=== PATIENT | female | born 1970 | race Caucasian/White ===

== ENCOUNTER 2023-04-06 10:05 | Inpatient (IN) | payer SELFPAY ==
[2023-04-06 12:01] LABS: BASO % 1.1 % (0-2.0); EOS % 2.8 % (0-4.5); HEMATOCRIT 39.4 % (32.4-45.2); HEMOGLOBIN 12.7 GM/dL (10.7-15.3); LYMPH % 21.7 % (8-40); MCH 24.5 pg (25.7-33.7); MCHC 32.2 g/dl (32.0-36.0); MEAN CELL VOLUME 76.2 fl (80-96); MEAN PLT VOLUME 9.2 fl (7.5-11.1); NEUT % 68.4 % (42.8-82.8); PLATELET COUNT 384 10^3/uL (134-434); RBC 5.17 M/mm3 (3.60-5.2); WHITE BLOOD COUNT 11.2 K/mm3 (4.0-10.0)
[2023-04-06 12:07] LABS: INR 1.14 (0.83-1.09); PROTHROMBIN TIME (PATIENT) 13.2 SEC (9.7-13.0)
[2023-04-06] MEDS ORDERED: ASPIRIN 81 MG CHEWABLE TABLETS PO ONE (12:07)
[2023-04-06 12:10] LABS: ACTIVATED PTT 28.6 SECONDS (25.2-36.5)
[2023-04-06] MEDS ORDERED: ASPIRIN 81 MG CHEWABLE TABLETS ONE (12:23)
[2023-04-06 12:36] LABS: PH,URINE 5.5 (5.0-8.0); URINE APPEARANCE CLEAR; URINE BILIRUBIN NEGATIVE (NEGATIVE); URINE COLOR YELLOW; URINE GLUCOSE (UA) 3+ (NEGATIVE); URINE KETONE NEGATIVE (NEGATIVE); URINE LEUK ESTERASE NEGATIVE (NEGATIVE); URINE NITRITE NEGATIVE (NEGATIVE); URINE PROTEIN NEGATIVE (NEGATIVE); URINE UROBILINOGEN 0.2 mg/dL (0.2-1.0)
[2023-04-06 12:55] LABS: CHLORIDE 97 mmol/L (98-107); POTASSIUM 4.6 mmol/L (3.5-5.1); SODIUM 131 mmol/L (136-145)
[2023-04-06 12:59] LABS: ALBUMIN 3.8 g/dl (3.4-5.0); ANION GAP 7 MMOL/L (8-16); CALCIUM 9.5 mg/dL (8.5-10.1); CO2 26 mmol/L (21-32)
[2023-04-06 13:01] LABS: BLOOD UREA NITROGEN 16.4 mg/dL (7-18)
[2023-04-06 13:03] LABS: CREATININE 0.8 mg/dL (0.55-1.3); SGOT/AST 16 U/L (15-37); SGPT/ALT 35 U/L (13-61)
[2023-04-06 13:04] LABS: CHOLESTEROL 200 mg/dL (50-200)
[2023-04-06 13:05] LABS: BILIRUBIN,TOTAL 0.5 mg/dL (0.2-1); LDL CHOLESTEROL (ONLY SJRH) 138 mg/dL (5-100); TOT PROT 7.8 g/dl (6.4-8.2)
[2023-04-06 13:07] LABS: ALK PHOS 133 U/L (45-117); HDL CHOLESTEROL 32 mg/dL (40-60)
[2023-04-06 13:09] LABS: GLUCOSE,RANDOM 479 mg/dL (74-106)
[2023-04-06] MEDS ORDERED: INSULIN REGULAR HUMAN 100 UNITS/ML *VIAL IVPUSH ONE (14:14)
[2023-04-06] MEDS ORDERED: LACTATED RINGERS SOLUTION 1,000 ML/1,000 ML INFUS.BAG IV SCH (14:30)
[2023-04-06] MEDS ORDERED: INSULIN (LEVEMIR) 100 UNITS/ML UNITS SQ ONE (14:30)
[2023-04-06] MEDS: ATORVASTATIN CA 80 MG TABLET (FP) PO SCH (21:18)
[2023-04-07] MEDS ORDERED: INSULIN REGULAR HUMAN 100 UNITS/ML *VIAL IVPUSH ONE (00:18)
[2023-04-07] MEDS ORDERED: INSULIN (NOVOLOG) ASPART 100 UNITS/ML 10ML VIAL SQ ONE (00:45)
[2023-04-07] MEDS: INSULIN SLIDING SCALE (NOVOLOG) 1 VIAL SQ SCH ×4 (06:45→21:21)
[2023-04-07 07:53] LABS: BASO % 0.8 % (0-2.0); EOS % 4.4 % (0-4.5); HEMATOCRIT 36.3 % (32.4-45.2); HEMOGLOBIN 11.8 GM/dL (10.7-15.3); LYMPH % 27.4 % (8-40); MCH 24.6 pg (25.7-33.7); MCHC 32.5 g/dl (32.0-36.0); MEAN CELL VOLUME 75.7 fl (80-96); MEAN PLT VOLUME 9.1 fl (7.5-11.1); MONO % 7.4 % (3.8-10.2); PLATELET COUNT 334 10^3/uL (134-434); RDW 14.7 % (11.6-15.6); WHITE BLOOD COUNT 8.3 K/mm3 (4.0-10.0)
[2023-04-07 08:12] LABS: POTASSIUM 4.3 mmol/L (3.5-5.1)
[2023-04-07 08:14] LABS: ALBUMIN 3.1 g/dl (3.4-5.0); BLOOD UREA NITROGEN 13.7 mg/dL (7-18); CALCIUM 8.6 mg/dL (8.5-10.1)
[2023-04-07 08:15] LABS: MAGNESIUM 1.9 mg/dL (1.8-2.4)
[2023-04-07 08:17] LABS: CREATININE 0.5 mg/dL (0.55-1.3); PHOSPHOROUS 3.7 mg/dL (2.5-4.9)
[2023-04-07 08:19] LABS: BILIRUBIN,TOTAL 0.4 mg/dL (0.2-1); TOT PROT 6.3 g/dl (6.4-8.2)
[2023-04-07] MEDS ORDERED: ASPIRIN COATED 81 MG TABLET.EC PO SCH ×2 (10:00)
[2023-04-07] MEDS: ENOXAPARIN NA (PORCINE) 40 MG/0.4 ML DISP.SYRIN SQ SCH (10:10)
[2023-04-07] MEDS: ASPIRIN COATED 81 MG TABLET.EC PO SCH (10:10)
[2023-04-07] MEDS ORDERED: ACETAMINOPHEN/CAFFEINE/BUTALBITAL 1 TAB PO ONE (14:24)
[2023-04-07] MEDS: OMEGA-3 ACID ETHYL ESTERS (FATTY-ACIDS) 1 GM CAPSULE (FP) PO SCH (21:10)
[2023-04-07] MEDS: ATORVASTATIN CA 80 MG TABLET (FP) PO SCH (21:11)
[2023-04-07] MEDS ORDERED: INSULIN (NOVOLOG) ASPART 100 UNITS/ML 10ML VIAL ONE (21:19)
[2023-04-07] MEDS ORDERED: INSULIN (LEVEMIR) 100 UNITS/ML UNITS SQ SCH (22:00)
[2023-04-08] MEDS ORDERED: INSULIN (NOVOLOG) ASPART 100 UNITS/ML 10ML VIAL ONE ×3 (06:18→16:00)
[2023-04-08] MEDS: INSULIN SLIDING SCALE (NOVOLOG) 1 VIAL SQ SCH ×4 (06:45→23:05)
[2023-04-08] MEDS: INSULIN (LEVEMIR) 100 UNITS/ML UNITS SQ SCH ×2 (10:20→23:04)
[2023-04-08] MEDS: ENOXAPARIN NA (PORCINE) 40 MG/0.4 ML DISP.SYRIN SQ SCH (10:21)
[2023-04-08] MEDS: ASPIRIN COATED 81 MG TABLET.EC PO SCH (10:21)
[2023-04-08] MEDS: OMEGA-3 ACID ETHYL ESTERS (FATTY-ACIDS) 1 GM CAPSULE (FP) PO SCH ×2 (10:21→22:27)
[2023-04-08 10:47] VITALS: RESP 18
[2023-04-08] MEDS: CYCLOBENZAPRINE HCL 5 MG TABLET PO SCH (12:36)
[2023-04-08] MEDS: METHYL SALICYLATE/MENTHOL OINT 30 GM TUBE TP SCH ×2 (13:20)
[2023-04-08 14:33] VITALS: BMI 35.7
[2023-04-08] MEDS: ATORVASTATIN CA 80 MG TABLET (FP) PO SCH (22:28)
[2023-04-09] MEDS: INSULIN (NOVOLOG) ASPART 100 UNITS/ML 10ML VIAL SQ SCH ×3 (06:35→16:32)
[2023-04-09] MEDS: INSULIN SLIDING SCALE (NOVOLOG) 1 VIAL SQ SCH ×3 (06:36→16:32)
[2023-04-09] MEDS: INSULIN (LEVEMIR) 100 UNITS/ML UNITS SQ SCH (06:38)
[2023-04-09 07:42] LABS: BASO % 0.8 % (0-2.0); EOS % 3.9 % (0-4.5); HEMATOCRIT 37.2 % (32.4-45.2); LYMPH % 21.5 % (8-40); MCH 24.6 pg (25.7-33.7); MCHC 32.3 g/dl (32.0-36.0); MEAN CELL VOLUME 76.2 fl (80-96); MONO % 6.1 % (3.8-10.2); NEUT % 67.7 % (42.8-82.8); PLATELET COUNT 325 10^3/uL (134-434); RBC 4.89 M/mm3 (3.60-5.2); WHITE BLOOD COUNT 9.8 K/mm3 (4.0-10.0)
[2023-04-09 07:57] LABS: POTASSIUM 4.5 mmol/L (3.5-5.1)
[2023-04-09 08:01] LABS: ALBUMIN 3.3 g/dl (3.4-5.0); CALCIUM 8.8 mg/dL (8.5-10.1)
[2023-04-09 08:02] LABS: BLOOD UREA NITROGEN 14.3 mg/dL (7-18)
[2023-04-09 08:05] LABS: CREATININE 0.6 mg/dL (0.55-1.3)
[2023-04-09 08:06] LABS: BILIRUBIN,TOTAL 0.4 mg/dL (0.2-1); TOT PROT 6.6 g/dl (6.4-8.2)
[2023-04-09] MEDS: ASPIRIN COATED 81 MG TABLET.EC PO SCH (10:14)
[2023-04-09] MEDS: ENOXAPARIN NA (PORCINE) 40 MG/0.4 ML DISP.SYRIN SQ SCH (10:14)
[2023-04-09] MEDS: OMEGA-3 ACID ETHYL ESTERS (FATTY-ACIDS) 1 GM CAPSULE (FP) PO SCH (10:14)
[2023-04-09] MEDS: CYCLOBENZAPRINE HCL 5 MG TABLET PO SCH (10:14)
[2023-04-09] MEDS: METHYL SALICYLATE/MENTHOL OINT 30 GM TUBE TP SCH (11:13)
[2023-04-09] MEDS ORDERED: ACETAMINOPHEN 325 MG TABLET (FP) PO ONE (13:50)
[2023-04-09] MEDS ORDERED: ACETAMINOPHEN 1000 MG/100 ML BAG IVPB ONE (13:58)
[2023-04-09 18:29] VITALS: BP 142/87; PULSE 75; TEMP 98.7
== END 2023-04-09 18:34 | disposition home or self-care (01) | DRG 45 ==
LOC: JER 10:05 → JERBED 12:13 → J4W 16:49 → OBSVTOIN 04-07 08:00
PROVIDERS: ADMIT Internal Medicine; ATTEND Internal Medicine
DX: I63.89 Other cerebral infarction (principal); I10 Essential (primary) hypertension; E11.65 Type 2 diabetes mellitus with hyperglycemia; E78.5 Hyperlipidemia, unspecified; E78.1 Pure hyperglyceridemia; I65.23 Occlusion and stenosis of bilateral carotid arteries; E87.1 Hypo-osmolality and hyponatremia; E66.9 Obesity, unspecified; Z68.35 Body mass index [BMI] 35.0-35.9, adult; R51.9 Headache, unspecified; G81.91 Hemiplegia, unspecified affecting right dominant side; R29.701 NIHSS score 1
CPT/HCPCS: 36415; 70450-TC; 70498-TC; 70551-TC; 80053; 80061; 81003; 82550; 82962; 83036; 83735; 84100; 85025; 85610; 85730; 86850; 86900; 86901; 93005; 93010; 93306-TC; 93880-TC; 97116-GP; 97162-GP; 99291; G0378

== ENCOUNTER 2024-06-30 01:26 | Emergency (ER) | payer OTHER ==
[2024-06-30 01:34] VITALS: PULSE 82; RESP 18; TEMP 97.9; BMI 28.3
[2024-06-30] MEDS ORDERED: ACETAMINOPHEN INJECTION 100 ML ONE (02:41)
[2024-06-30] MEDS: ACETAMINOPHEN 1000 MG/100 ML BAG IVPB ONE (02:57)
[2024-06-30 03:03] LABS: BASO % 0.9 % (0-2.0); EOS % 3.4 % (0-4.5); HEMOGLOBIN 10.4 GM/dL (10.7-15.3); LYMPH % 24.2 % (8-40); MCH 24.2 pg (25.7-33.7); MCHC 32.5 g/dl (32.0-36.0); MEAN CELL VOLUME 74.7 fl (80-96); MEAN PLT VOLUME 7.8 fl (7.5-11.1); MONO % 7.7 % (3.8-10.2); NEUT % 63.8 % (42.8-82.8); PLATELET COUNT 376 10^3/uL (134-434); RBC 4.28 M/mm3 (3.60-5.2); RDW 14.9 % (11.6-15.6); WHITE BLOOD COUNT 10.9 K/mm3 (4.0-10.0)
[2024-06-30 03:22] LABS: POTASSIUM 4.9 mmol/L (3.5-5.1)
[2024-06-30 03:24] LABS: CALCIUM 9.3 mg/dL (8.5-10.1)
[2024-06-30 03:25] LABS: ALBUMIN 3.7 g/dl (3.4-5.0); BLOOD UREA NITROGEN 13.4 mg/dL (7-18)
[2024-06-30 03:28] LABS: CREATININE 0.6 mg/dL (0.55-1.3)
[2024-06-30 03:29] LABS: BILIRUBIN,TOTAL 0.3 mg/dL (0.2-1)
[2024-06-30 04:08] VITALS: BP 174/82
== END 2024-06-30 04:20 | disposition home or self-care (01) ==
LOC: JER 01:26
PROC: 3E033NZ Introduction of Analgesics, Hypnotics, Sedatives into Peripheral Vein, Percutaneous Approach (ICD-10-PCS; principal; 2024-06-30)
DX: J10.1 Influenza due to other identified influenza virus with other respiratory manifestations (principal); R06.02 Shortness of breath; R05.9 Cough, unspecified; R50.9 Fever, unspecified; R09.81 Nasal congestion; Z20.822 Contact with and (suspected) exposure to COVID-19
CPT/HCPCS: 0241U-QW; 36415; 71045-TC-FY; 80053; 84484; 85025; 93005; 93010; 99285-25; J0131